=== PATIENT | female | born 1970 | race African-American/Black ===

== ENCOUNTER 2017-12-03 08:28 | Emergency (ER) | payer SELFPAY | END 2017-12-03 09:42 | disposition home or self-care (01) | LOC: ERS 08:28 | DX: K04.7 Periapical abscess without sinus (principal); K02.9 Dental caries, unspecified | CPT/HCPCS: 99283 ==

== ENCOUNTER 2018-07-07 10:22 | Emergency (ER) | payer SELFPAY | END 2018-07-07 10:39 | disposition home or self-care (01) | LOC: ERS 10:22 | DX: K02.9 Dental caries, unspecified (principal) | CPT/HCPCS: 99282 ==

== ENCOUNTER 2023-03-10 08:55 | Emergency (ER) | payer SELFPAY | END 2023-03-10 10:50 | disposition home or self-care (01) | LOC: ERS 08:55 | DX: K02.9 Dental caries, unspecified (principal); K04.7 Periapical abscess without sinus; F17.200 Nicotine dependence, unspecified, uncomplicated | CPT/HCPCS: 99282 ==

== ENCOUNTER 2023-08-05 13:24 | Emergency (ER) | payer SELFPAY ==
[2023-08-05 15:11] LABS: SARS-CoV-2 NAA Rapid Test Not Detected (NotDetected)
== END 2023-08-05 15:20 | disposition home or self-care (01) ==
LOC: ERS 13:24
DX: B34.9 Viral infection, unspecified (principal); Z20.822 Contact with and (suspected) exposure to COVID-19; F17.200 Nicotine dependence, unspecified, uncomplicated
CPT/HCPCS: 71045